=== PATIENT | male | born 1965 | race Caucasian/White ===

== ENCOUNTER 2023-02-22 11:16 | Emergency (ER) | payer BC ==
[~2023-02-22] VITALS: Wt 106.6 kg
[2023-02-22] MEDS ORDERED: AMOX-CLAV 875-1 EACH PO (13:52)
[2023-02-22] MEDS ORDERED: PREDNISONE50 MG PO (13:52)
== END 2023-02-22 14:08 | disposition home or self-care (01) ==
LOC: ED 11:16
DX: J40 Bronchitis, not specified as acute or chronic (principal); H66.91 Otitis media, unspecified, right ear; Z88.1 Allergy status to other antibiotic agents; Z20.822 Contact with and (suspected) exposure to COVID-19

== ENCOUNTER 2025-04-11 21:33 | Emergency (ER) | payer BC ==
[~2025-04-11] VITALS: Ht 175.2 cm; Wt 106.6 kg
[~2025-04-11 21:33] MED LIST: AMOX-CLAV 875-1 EACH PO; PREDNISONE50 MG PO
[2025-04-11] MEDS ORDERED: Albuterol Sulf/Ipratropium 3 ML VIAL NEB ONE (21:45)
[2025-04-11] MEDS ORDERED: methylPREDNISolone sod succ 125 MG VIAL IV ONE (21:45)
[2025-04-11 22:04] LABS: BASO # 0.1 10*3/uL (0.0-0.1); BASO % 0.9 % (0.0-1.0); EOS # 0.8 10*3/uL (0.0-0.4); EOS % 9.6 % (1.0-4.0); HEMATOCRIT 42.3 % (42.0-52.0); MEAN CELL VOLUME 93.6 fl (80.0-94.0); MEAN CORPUSCULAR HGB CONC 33.1 g/dl (33.0-37.0); MONO # 0.8 10*3/uL (0.1-1.0); MONO % 9.7 % (3.0-9.0); NEUT % 62.7 % (47.0-73.0); PLATELET COUNT AUTOMATED 248 10*3/uL (130-400); RED BLOOD COUNT 4.52 10*6/uL (4.50-5.90); RED CELL DISTRI WIDTH 12.4 % (0-14.5); WHITE BLOOD COUNT 7.9 10*3/uL (4.8-10.8)
[2025-04-11 22:23] LABS: BUN 8 mg/dl (9-23); CHLORIDE 106 mmol/L (98-107); POTASSIUM 3.5 mmol/L (3.4-5.1)
[2025-04-11] MEDS ORDERED: SODIUM CHLORIDE 0.9% 1,000 ML IV SCH (22:35)
[2025-04-11] MEDS ORDERED: PREDNISONE20 M1 PO (23:00)
[2025-04-11] MEDS ORDERED: Amoxicillin/Clavulanate Pota 875 MG TAB PO ONE (23:10)
[2025-04-11] MEDS ORDERED: AMOX-CLAV 875-1 EACH PO (23:10)
== END 2025-04-11 23:44 | disposition left against medical advice (07) ==
LOC: ED 21:33
PROVIDERS: Nurse Practitioner Family
DX: J45.909 Unspecified asthma, uncomplicated (principal); R65.10 Systemic inflammatory response syndrome (SIRS) of non-infectious origin without acute organ dysfunction; Z20.822 Contact with and (suspected) exposure to COVID-19; Z79.899 Other long term (current) drug therapy; Z88.1 Allergy status to other antibiotic agents